=== PATIENT | female | born 1980 | race Caucasian/White ===

== ENCOUNTER 2017-05-05 11:40 | Inpatient (IN) | payer BC ==
[~2017-05-05] VITALS: Ht 157.5 cm; Wt 91.4 kg
[~2017-05-05 11:40] MED LIST: MOTRIN 800800 MG/TAB PO; PERCOCET 325 MG1 TA2 PO
[2017-06-29] VITALS (19 sets, daily range): BP systolic 95–127; BP diastolic 44–63; PULSE 56–75; TEMP 97.7–98
[2017-06-29] MEDS ORDERED: PRENATAL1 TA7 PO (09:39)
[2017-06-29 10:18] LABS: BASO % 0.3 % (0.0-2.0); EOS # 0.1 (0.0-0.7); EOS % 1.2 % (0-4.0); GRAN # 6.8 (1.4-6.5); GRAN % 74.8 % (42.2-75.2); LYMPH # 1.6 (1.2-3.4); LYMPH % 17.4 % (20.0-51.0); MEAN CELL VOLUME 78 fl (80.0-100.0); MEAN CORPUSCULAR HGB CONC 32 g/dl (33.0-37.0); MEAN PLATELET VOLUME 10.8 fl (7.4-10.4); MONO # 0.5 (0.1-0.6); MONO % 5.8 % (1.7-9.3); PLATELET COUNT 294 K/mm3 (130-400); RED BLOOD COUNT 3.89 M/mm3 (4.10-5.30); REDCELL DISTRIBUTION WIDTH-CV 15.9 % (11.5-14.5); WHITE BLOOD COUNT 9.1 K/mm3 (4.8-10.8)
[2017-06-29 10:20] LABS: HEMATOCRIT 30.2 % (37.0-47.0); HEMOGLOBIN 9.7 g/dl (12.5-16.0); MEAN CORPUSCULAR HEMOGLOBIN 25 pg (27.0-31.0)
[2017-06-29] MEDS ORDERED: PERCOCET 325 MG1 TA2 PO (12:03)
[2017-06-29] MEDS ORDERED: FERROUS SU325 MG/TAB PO (12:03)
[2017-06-29] MEDS ORDERED: IBU600 MG PO (12:04)
[2017-06-30 00:30] VITALS: BP 110/68; PULSE 72; TEMP 98
[2017-06-30 05:45] VITALS: BP 108/52; PULSE 83; TEMP 98.2
[2017-06-30 07:51] LABS: BASO % 0.3 % (0.0-2.0); EOS # 0.1 (0.0-0.7); EOS % 0.6 % (0-4.0); GRAN # 9.1 (1.4-6.5); GRAN % 83.9 % (42.2-75.2); LYMPH # 0.9 (1.2-3.4); LYMPH % 8.6 % (20.0-51.0); MEAN CELL VOLUME 80 fl (80.0-100.0); MEAN CORPUSCULAR HGB CONC 31 g/dl (33.0-37.0); MEAN PLATELET VOLUME 10.8 fl (7.4-10.4); MONO # 0.7 (0.1-0.6); MONO % 6.3 % (1.7-9.3); PLATELET COUNT 225 K/mm3 (130-400); RED BLOOD COUNT 3.15 M/mm3 (4.10-5.30); REDCELL DISTRIBUTION WIDTH-CV 15.9 % (11.5-14.5); WHITE BLOOD COUNT 10.8 K/mm3 (4.8-10.8)
[2017-06-30 07:52] LABS: HEMOGLOBIN 7.8 g/dl (12.5-16.0); MEAN CORPUSCULAR HEMOGLOBIN 25 pg (27.0-31.0)
[2017-06-30 07:53] LABS: HEMATOCRIT 25.1 % (37.0-47.0)
[2017-06-30 08:10] VITALS: BP 105/53; PULSE 83; TEMP 97.8
== END 2017-06-30 16:15 | disposition home or self-care (01) | DRG 766 ==
LOC: LDR 06-29 08:10 → OB 06-29 09:02 → EDSTATUS 07-04 08:00 → LDRO 07-04 11:39
PROVIDERS: Obstetrics & Gynecology
PROC: 10D00Z1 Extraction of Products of Conception, Low, Open Approach (ICD-10-PCS; principal; 2017-06-29)
DX: O34.211 Maternal care for low transverse scar from previous cesarean delivery (principal); N85.8 Other specified noninflammatory disorders of uterus; O99.013 Anemia complicating pregnancy, third trimester; D64.9 Anemia, unspecified; Z3A.39 39 weeks gestation of pregnancy; Z37.0 Single live birth
CPT/HCPCS: J0690; J1885; J2270; J2370; J2405; J2590; J7120